=== PATIENT | female | born 1990 | race Caucasian/White ===

== ENCOUNTER 2017-01-23 03:59 | Outpatient (CLI) | payer OTHER ==
[~2017-01-23] VITALS: Ht 157.5 cm; Wt 72.0 kg
[~2017-01-23 03:59] MED LIST: AMOX500C2 PO; IBUP-1542 PO
[2017-01-23 04:16] VITALS: BP 125/71; PULSE 84; RESP 18; Ht 157.5 cm; Wt 72.0 kg
[2017-01-23] MEDS ORDERED: LACTATED RINGER'S 1,000 ML IV SCH (04:38)
[2017-01-23 05:26] LABS: BASOPHILS % 0.2 % (0.0-2.0); EOSINOPHILS # 0.2 10^3/ul (0.0-0.5); EOSINOPHILS % 1.2 % (0.0-7.0); HEMATOCRIT 38.1 % (37.0-47.0); HEMOGLOBIN 13.4 g/dl (12.0-16.0); LYMPHOCYTES # 2.1 10^3/ul (0.8-2.9); LYMPHOCYTES % 11.9 % (15.0-51.0); MEAN CORPUSCULAR HEMOGLOBIN 29.3 pg (29.0-33.0); MEAN CORPUSCULAR HGB CONC 35.2 g/dl (32.0-37.0); MEAN CORPUSCULAR VOLUME 83.4 fl (82.0-101.0); MEAN PLATELET VOLUME 10.7 fl (7.4-10.4); MONOCYTES % 6.1 % (0.0-11.0); NEUTROPHIL # 13.7 10^3/ul (1.6-7.5); NEUTROPHILS % 79.8 % (39.0-77.0); PLATELET COUNT 232 10^3/UL (140-415); RED BLOOD COUNT 4.57 10^6/ul (4.20-5.40); RED CELL DISTRIBUTION WIDTH 12.3 % (11.5-14.5); WHITE BLOOD COUNT 17.2 10^3/ul (4.8-10.8)
[2017-01-23 06:05] LABS: ADD UMIC NO; UR ASCORBIC ACID 20 mg/dL (NEGATIVE); UR BILIRUBIN (Dip) NEGATIVE (NEGATIVE); UR BLOOD (Dip) NEGATIVE (NEGATIVE); UR CLARITY CLEAR (CLEAR); UR COLOR YELLOW (YELLOW); UR GLUCOSE (Dip) NEGATIVE (NEGATIVE); UR KETONES (Dip) NEGATIVE (NEGATIVE); UR LEUKOCYTE ESTERASE (Dip) NEGATIVE Leu/ul (NEGATIVE); UR NITRITE (Dip) NEGATIVE (NEGATIVE); UR SPECIFIC GRAVITY (Dip) 1.013 (1.003-1.030); UR TOTAL PROTEIN (Dip) NEGATIVE (NEGATIVE); UR UROBILINOGEN (Dip) NEGATIVE (NEGATIVE)
[2017-01-23] MEDS ORDERED: SOD CHLORIDE 0.9% 1,000 ML IV SCH (06:50)
[2017-01-23] MEDS ORDERED: CEFTRIAXONE 1 GM INJ IVPB ONE (07:00)
[2017-01-23] MEDS ORDERED: PREN-93 PO (07:27)
[2017-01-23] MEDS ORDERED: CEFTRIAXONE 1 GM/NS 50 ML IVPB SCH (08:00)
--- NOTE | 2017-01-23 09:44 | TRIAGE ---
OB Triage Datetime Report Generated by CPN: 01/23/2017 09:44 Datetime: 01/23/2017 07:44 Maternal Assessment Level of Consciousness: Fully Conscious DTR's/Clonus: DTRs 2+ Headache: Denies Blurred Vision: No Nausea/Vomiting: Denies RUQ Epigastric Pain: Denies Facial Edema: None Labor Evaluation Frequency: NONE Heart Rate FHR Baseline Rate: 150 Monitor Mode: Doppler Pain Assessment Pain Scale: 2 Pain Presence: Constant Pain Type: Ache Pain Location: Back Pain Goal: 2 Membrane Status: Intact Datetime: 01/23/2017 07:00 Labor Evaluation Frequency: IRREGULAR Monitor Mode: External Duration (sec)2399: 20-100 Quality: Mild Pattern: Normal: <= 5 Contractions in 10 Minutes Resting Tone [place]: Relaxed Datetime: 01/23/2017 06:00 Labor Evaluation Frequency: IRREGULAR Monitor Mode: External Duration (sec)2399: 80-100 Quality: Mild Pattern: Normal: <= 5 Contractions in 10 Minutes Resting Tone [place]: Relaxed Datetime: 01/23/2017 05:00 Labor Evaluation Frequency: IRRITABILITY/ CONTRACTIONS Monitor Mode: External Duration (sec)2399: 30-100 Quality: Mild Pattern: Normal: <= 5 Contractions in 10 Minutes Resting Tone [place]: Relaxed Datetime: 01/23/2017 04:23 EGA: 23.4 Datetime: 01/23/2017 04:20 Vaginal Exam Dilatation (cms): 0.0 Effacement (%): 0 Station: -3 Exam By: Manny GARZA RN Vaginal Bleeding: None Cervix, Consistency: Firm Cervix, Position: Posterior Datetime: 01/23/2017 04:09 Stage of : OB Triage Time of Arrival: 01/23/2017 03:51 Arrived By: Wheelchair Arrived From: Home Chief Complaint: C/O ABDOMINAL AND RT SIDED BACK PAIN CVA TENDERNESS Movement: Present Contractions: Irregular Time Contractions Began: 01/22/2017 22:00 Rupture of Membranes: Denies Vaginal Bleeding: None Vaginal Discharge: Denies Recent Sexual Intercouse: Denies Abdominal Trauma: Not Applicable Patient Complaints: None (Annotations: Data stored by CPN on behalf of user) Time Provider Notified: 01/23/2017 04:30 Provider Notified: DR ARROYO Initial Plan: CALL MIGUEL ELLINGTON Maternal Assessment Level of Consciousness: Fully Conscious DTR's/Clonus: DTRs 2+; No Clonus Headache: Denies Blurred Vision: No Respiratory Effort: Unlabored; Regular Rhythm; Equal Expansion Breath Sounds, Left: Clear and Equal Breath Sounds, Right: Clear and Equal Nausea/Vomiting: Denies RUQ Epigastric Pain: Denies Lower Extremities Edema: None Degree: None Upper Extremities Edema: None Degree: None Facial Edema: None Temperature Route: Oral Fall Risk Assessment History of Falling: (0) No Secondary Diagnosis: (0) No Ambulatory Aid: (0) Bedrest/Nurse Assist IV Therapy: (0) No Gait: (0) Normal/Bedrest/Immobile Mental Status: (0) Oriented to Own Ability Fall Score: 0 Fall Risk Score Definition: No Risk: No action required Monitor Mode: External Monitor Mode: External US (Annotations: DOPPLER 144 BPM) Pain Assessment Pain Scale: 9 Pain Presence: Constant Pain Type: Sharp Pain Location: Abdomen; Back
--- NOTE | 2017-01-23 17:00 | QN ---
Documentation Comment iup 23 weeks co of back pain vss ua wnl a/p iup 23 early uti-jessica and keLUCAS Rick MD Jan 23, 2017 17:00
[2017-01-25] MEDS ORDERED: LACTATED RINGER'S 1,000 ML IV SCH (05:21)
== END 2017-01-23 09:40 | disposition home or self-care (01) ==
LOC: OBT 03:59 → L-D 04:00 → OBT 09:40
PROVIDERS: ATTEND Obstetrics & Gynecology
DX: O23.42 Unspecified infection of urinary tract in pregnancy, second trimester (principal); Z3A.23 23 weeks gestation of pregnancy
CPT/HCPCS: 36415; 81003; 85025; 87086; 96360; 96361; J0696; J7030; J7120; Z7500; G0463